=== PATIENT | male | born 1980 | race Two or more races ===

== ENCOUNTER 2024-03-28 19:28 | Emergency (ER) | payer OTHER ==
[~2024-03-28] VITALS: Ht 154.9 cm; Wt 65.8 kg
[2024-03-28 19:52] VITALS: BP 150/82; O2SAT 98
[2024-03-28 23:22] LABS: HEMATOCRIT 44.8 % (39.0-48.0); HEMOGLOBIN 15.4 g/dL (13-16.00); MEAN CELL VOLUME 85.1 fL (80.0-100.00); MEAN CORPUSCULAR HEMOGLOBIN 29.3 pg (27.00-32.0); MEAN CORPUSCULAR HGB CONC 34.4 g/dl (32.0-36.0); PLATELET COUNT 437 K/uL (150-450); RED BLOOD COUNT 5.26 M/uL (4.00-6.00); RED CELL DISTRIBUTION WIDTH 14.4 % (11.5-14.5)
[2024-03-29] MEDS ORDERED: GILTUSS COUGH-118 M1 PO (00:01)
[2024-03-29] MEDS ORDERED: ZITHROMAX TRI-500 MG PO (00:01)
[2024-03-29] MEDS ORDERED: ACETAMINOPHEN500 M1 PO (00:01)
== END 2024-03-29 00:14 | disposition home or self-care (01) ==
LOC: ER 19:30
PROVIDERS: Preventive Medicine Public Health & General Preventive Medicine
DX: J06.9 Acute upper respiratory infection, unspecified (principal); Z20.822 Contact with and (suspected) exposure to COVID-19